=== PATIENT | female | born 1995 | race Caucasian/White ===

== ENCOUNTER 2016-02-07 01:02 | Emergency (ER) | payer OTHER ==
[~2016-02-07] VITALS: Ht 167.6 cm; Wt 65.8 kg
[~2016-02-07 01:02] MED LIST: ABILIFY10 MG PO; ABILIFY20 MG PO; AMOXICILLIN500 M2 PO; ANTIBIOTIC O500 U/GM TP; BACTRIM DS 8001 TA1 PO; BENADRYL25 M1 PO; BENADRYL25 MG PO; BIRTH CONTROL1 EAC1 PO; CATAFLAM50 MG PO; CLARITIN10 MG PO; CLINDAMYCIN150 MG PO; COGENTIN1 MG/ML IJ; CONCERTA18 MG PO; CONCERTA27 MG PO; CONCERTA54 MG PO; DEPAKOTE ER500 MG PO; DEPRESSION PILL; DIFLUCAN150 MG PO; KEFLEX500 MG PO; LIDEX0.05% T; MACROBID100 M1 PO; METROGEL0.751 VG; MOTRIN100 MG/5 M PO; MOTRIN600 MG PO; MOTRIN800 MG PO; Motrin,Rufen800 MG PO; NAPROSYN500 MG PO; NORCO 325 MG-51 TAB PO; PEN-VK500 MG PO; PEPCID20 MG PO; PERIDEX 480 ML480 ML PO; PREDNICOT20 MG PO; PREDNISONE20 M1 PO; PRILOSEC20 MG PO; PYRIDIUM200 M1 PO; PYRIDIUM200 MG PO; TYLENOL W/ CODEI5 ML PO; ULTRAM50 MG PO; ZITHROMAX Z-PA250 MG PO; ZITHROMAX250 MG PO; ZOFRAN ODT4 MG SL; Zofran4 MG PO
[2016-02-07 02:01] LABS: BASO % 0.3 % (0.0-1.0); EOS # 0.3 10*3/uL (0.0-0.4); EOS % 2.8 % (1.0-4.0); HEMATOCRIT 40.7 % (37.0-47.0); HEMOGLOBIN 13.4 g/dl (12.0-16.0); LYMPH # 3.2 10*3/uL (1.3-4.4); LYMPH % 27.2 % (27.0-41.0); MEAN CELL VOLUME 91.3 fl (81.0-99.0); MEAN CORPUSCULAR HGB CONC 32.9 g/dl (33.0-37.0); MEAN PLATELET VOLUME 10.9 fl (9.6-12.3); MONO % 8.5 % (3.0-9.0); NEUT # 7.2 10*3/uL (2.3-7.9); NEUT % 60.9 % (47.0-73.0); PLATELET COUNT AUTOMATED 211 10*3/uL (130-400); RED BLOOD COUNT 4.46 10*6/uL (4.10-5.10); RED CELL DISTRI WIDTH 13.1 % (0-14.5); WHITE BLOOD COUNT 11.9 10*3/uL (4.8-10.8)
[2016-02-07 02:21] LABS: ALBUMIN 3.7 gm/dl (3.1-4.5); ALKALINE PHOSPHATASE 100 U/L (45-117); BILIRUBIN, TOTAL 0.2 mg/dl (0.2-1.0); BUN 10 mg/dl (7-24); CARBON DIOXIDE 25 mmol/L (21-32); CHLORIDE 107 mmol/L (98-107); EST GLOM FILT AFRICAN AMERICAN > 60 ml/min; GLUCOSE 89 mg/dL (65-99); POTASSIUM 3.8 mmol/L (3.5-5.1); SGOT/AST 14 IU/L (3-35); SGPT/ALT 22 U/L (12-78); SODIUM 142 mmol/L (136-145)
[2016-02-07 02:24] LABS: C-REACTIVE PROTEIN < 0.29 MG/DL (0-0.3); MAGNESIUM 2.1 mg/dL (1.5-2.1)
[2016-02-07 03:43] LABS: BILIRUBIN NEGATIVE (NEGATIVE); BLOOD NEGATIVE (NEGATIVE); CLARITY SL CLOUDY (CLEAR); COLOR YELLOW (YELLOW); GLUCOSE NEGATIVE (NEGATIVE); KETONE NEGATIVE (NEGATIVE); LEUKO ESTERASE NEGATIVE (NEGATIVE); NITRITE NEGATIVE (NEGATIVE); PROTEIN NEGATIVE (NEGATIVE); UROBILINOGEN 0.2 E.U./dl (0.2-1.0)
[2016-02-07 03:47] LABS: EPITHELIAL CELLS 35-40
[2016-02-07 03:48] LABS: BACTERIA 1+; URINE REFLEX COMMENT NO (NO); WBC 0-2 wbc/hpf (0-5)
[2016-02-07] MEDS ORDERED: ZOFRAN ODT4 MG SL (04:05)
== END 2016-02-07 04:20 | disposition home or self-care (01) ==
LOC: ED 01:02
PROVIDERS: Emergency Medicine
DX: R11.2 Nausea with vomiting, unspecified (principal); F17.200 Nicotine dependence, unspecified, uncomplicated; F14.10 Cocaine abuse, uncomplicated; F11.10 Opioid abuse, uncomplicated; F12.10 Cannabis abuse, uncomplicated; F41.9 Anxiety disorder, unspecified; F31.9 Bipolar disorder, unspecified; F90.9 Attention-deficit hyperactivity disorder, unspecified type

== ENCOUNTER → 2024-09-17 | Outpatient (CLI) | payer OTHER ==
[~2024-09-17] MED LIST changes: +SEPTDS PO
[2024-09-17 08:35] LABS: BUN 8 mg/dl (9-23); FREE T4 1.24 ng/dl (0.89-1.76); LDL CHOLESTEROL 89 mg/dL (9-159)
== END | disposition home or self-care (01) ==
LOC: LAB 07:18
PROVIDERS: ATTEND Nurse Practitioner
DX: F20.0 Paranoid schizophrenia (principal); F31.9 Bipolar disorder, unspecified

== ENCOUNTER → 2024-10-13 | Outpatient (CLI) | payer OTHER ==
[2024-10-13 08:25] LABS: BUN 11 mg/dl (9-23)
== END | disposition home or self-care (01) ==
LOC: LAB 07:32
PROVIDERS: ATTEND Nurse Practitioner
DX: Z51.81 Encounter for therapeutic drug level monitoring (principal); F31.9 Bipolar disorder, unspecified

== ENCOUNTER 2024-11-09 11:12 | Emergency (ER) | payer OTHER ==
[~2024-11-09] VITALS: Ht 175.2 cm; Wt 97.5 kg
[2024-11-09] MEDS ORDERED: BENZOCAINE 20% 11.9 GM GEL T STA (11:31)
[2024-11-09] MEDS ORDERED: Amoxicillin/Clavulanate Pota 875 MG TAB PO ONE (11:35)
[2024-11-09] MEDS ORDERED: AMOX-CLAV 875-1 EACH PO (11:39)
[2024-11-09] MEDS ORDERED: HYDROCODONE-AC1 EAC1 PO (11:39)
== END 2024-11-09 11:46 | disposition home or self-care (01) ==
LOC: ED 11:12
DX: K08.89 Other specified disorders of teeth and supporting structures (principal); F90.9 Attention-deficit hyperactivity disorder, unspecified type; F41.9 Anxiety disorder, unspecified; F31.9 Bipolar disorder, unspecified; F17.290 Nicotine dependence, other tobacco product, uncomplicated

== ENCOUNTER 2024-11-17 17:22 | Emergency (ER) | payer OTHER ==
[~2024-11-17] VITALS: Ht 172.7 cm; Wt 97.5 kg
[~2024-11-17 17:22] MED LIST changes: +AMOX-CLAV 875-1 EACH PO; +HYDROCODONE-AC1 EAC1 PO
[2024-11-17 18:30] LABS: BILIRUBIN Negative (Negative); BLOOD Negative (Negative); CLARITY Clear (Clear); COLOR Yellow (Yellow); KETONE Negative (Negative); LEUKO ESTERASE 1+ (Negative); NITRITE Negative (Negative); PH 6.0 (4.5-8.0); SPECIFIC GRAVITY 1.020 (1.001-1.030); UROBILINOGEN 0.2 E.U./dl (0.0-1.0)
[2024-11-17 18:48] LABS: BACTERIA 1+; EPITHELIAL CELLS 16-20; MUCOUS 1+
[2024-11-17] MEDS ORDERED: METRONIDAZOLE500 M1 PO (19:04)
[2024-11-17] MEDS ORDERED: metroNIDAZOLE 500 MG TAB PO ONE (19:10)
[2024-11-17] MEDS ORDERED: AZITHROMYCIN 250 MG TAB PO ONE (19:10)
[2024-11-17] MEDS ORDERED: Miconazole Nitrate 2% 15 GM TUBE T ONE (19:10)
[2024-11-17] MEDS ORDERED: FLUCONAZOLE 150 MG TAB PO ONE (19:10)
== END 2024-11-17 19:35 | disposition home or self-care (01) ==
LOC: ED 17:22
PROVIDERS: Nurse Practitioner Family
DX: A59.9 Trichomoniasis, unspecified (principal); B37.31 Acute candidiasis of vulva and vagina; F31.9 Bipolar disorder, unspecified; F41.9 Anxiety disorder, unspecified; F90.9 Attention-deficit hyperactivity disorder, unspecified type; Z87.440 Personal history of urinary (tract) infections